=== PATIENT | male | born 1975 | race Caucasian/White ===

== ENCOUNTER 2020-06-28 13:43 | Outpatient (CLI) | payer OTHER, SELFPAY ==
--- NOTE | 2020-07-04 09:55 | P.PCNPFT_ITS ---
PFT Interpretation PFT Interpretation: This Spirometry met all criteria for ATS standards and reproducibility FEV/FVC post bronchodilator 78% FEV1 109% FVC 106% Flow volume loops showed normal expiratory limb but inspiratory limb showed some flattening. Impression: Normal PFT. The flowvolume loop suggests possible intrathoracic shannan tral airway obstruction in the right clinical context. It could also be that the inspiratory limb part of the flow volume loop was not focused on during the procedure. Clinical correlation is advised.
== END 2020-06-28 13:44 | disposition home or self-care (01) ==
LOC: ANHPFT 13:46
PROVIDERS: PCP Family Medicine Adolescent Medicine; Visit Provider Family Medicine Adolescent Medicine
DX: R06.02 Shortness of breath (principal)
CPT/HCPCS: 94060

== ENCOUNTER 2020-10-29 10:41 | Outpatient (CLI) | payer OTHER, SELFPAY ==
--- NOTE | ~2020-10-29 | XR_ITS ---
EXAMINATION: XR chest 2V EXAM DATE: 10/29/2020 11:04 INDICATION: Dyspnea since December. TECHNIQUE: Frontal and lateral projections of the chest obtained and reviewed. There is no prior meron dy for comparison. FINDINGS: The lungs are clear. There are no pleural effusions. The cardiomediastinal silhouette is within normal limits. There is no pneumothorax suspected. The bones and soft tissues are unremarkab le. IMPRESSION: Unremarkable chest x-ray exam. Reviewed, dictated and finalized at location A. OS ARCHITECT
== END 2020-10-29 10:42 | disposition home or self-care (01) ==
PROVIDERS: PCP Family Medicine Adolescent Medicine; Visit Provider Family Medicine Adolescent Medicine
DX: R06.09 Other forms of dyspnea (principal)
CPT/HCPCS: 71046

== ENCOUNTER → 2021-10-01 02:30 | Outpatient (CLI) | payer OTHER, SELFPAY ==
[2021-10-02 03:59] LABS: SARS-CoV-2 RNA PCR Negative
== END ==
PROVIDERS: PCP Family Medicine Adolescent Medicine; Visit Provider Family Medicine Adolescent Medicine
DX: R53.83 Other fatigue (principal); Z20.822 Contact with and (suspected) exposure to COVID-19
CPT/HCPCS: C9803; U0003; U0005

== ENCOUNTER → 2021-10-08 14:35 | Outpatient (CLI) | payer OTHER, SELFPAY ==
--- NOTE | ~2021-10-08 | XR_ITS ---
XR chest 2V DATE: 10/08/2021 14:42 INDICATION: Dyspnea TECHNIQUE: 2 views COMPARISON: 10/29/2020 PA and lateral chest FINDINGS: Normal heart size. No hilar or mediastinal enlargement. No pulmonary infiltrate or consolid ation, pleural effusion or pulmonary vascular congestion or pneumothorax. IMPRESSION: Negative Reviewed, dictated and finalized at location A. K WETTER IMPRESSION: Negative
== END ==
PROVIDERS: Visit Provider Internal Medicine Cardiovascular Disease
DX: R06.00 Dyspnea, unspecified (principal)
CPT/HCPCS: 71046

== ENCOUNTER 2024-03-29 06:48 | Day surgery (SDC) | payer OTHER, SELFPAY ==
[2024-03-04 08:18] VITALS: BMI 26.2
[2024-03-18 10:05] VITALS: BMI 26.7
--- NOTE | 2024-03-28 07:28 | P.PNAN_ITS ---
Anes - Initial Pre Proc Eval Procedure: Operation Date: 03/29/24 09:00 Proposed Procedures p Screening Colonoscopy - Carlos Manuel Cristina MD Date/Time: 03/28/24 07:28 Surgeon: Carlos Manuel Cristina MD Pre Op Diagnosis: Neoplasm Screening Patient Data Age: 48 Gender: M Height: 1.73 m Weight: 79.8 kg Allergies Allergy/AdvReac Type Severity Reaction Status Date / Time No Known Allergies Allergy Verified 03/29/24 07:43 Home Medications Medication Instructions Recorded Confirmed Type albuterol sulfate 90 mcg/actuation 1 inh inhalation Q4H PRN shortness 03/01/24 03/29/24 Rx aerosol inhaler of breath or wheezing #6.7 grams citalopram 40 mg tablet 40 mg PO DAILY 03/18/24 03/29/24 History Patient hx anesthesia problems: none Family hx anesthesia problems: none Results Review: All pre-operative results and documents have been reviewed as part of the pre- operative evaluation. [facility] Past Medical History Medical History Generalized anxiety disorder Pure hypercholesterolemia, unspecified Family History Family History Father Malignant neoplasm of prostate Social History Social History Social History: quit smoking 2004 Smoking status: Former smoker Tobacco type: cigarettes Alcohol intake: current Drinks per week: 21 Substance use: never Substance use type: does not use Living arrangements: with family Occupation/Education: occupation Gender identity (if verbalized by the patient): Male Spiritual care concerns: No Anes - Eval Final PreProcedure Day of Procedure 03/28/24 07:28 Patient weight: overweight Heart: regular rate and rhythm Lungs: clear to auscultation Airway: Mallampati scale class II Neurological: alert and oriented Last oral intake: >/= 8 hours ASA classification: III Emergent: no Anesthetic plan: proceed Anesthesia type and monitoring: general GIVS and standard monitoring Results Review: All pre-operative results and documents have been reviewed as part of the pre- operative evaluation. Informed Consent: The patient's anesthetic plan and its attendant risks and benefits were discussed with the patient/family/POA. Questions were solicited and answers provided to the satisfaction of the patient/family/POA.
[2024-03-29 07:44] VITALS: BP 107/91; PULSE 75; RESP 18; TEMP 36.9; O2SAT 99
[2024-03-29] MEDS: LACTATED RINGERS 1,000 ML 150 ML IV CONT (07:46)
--- NOTE | 2024-03-29 08:01 | PM.HPGS ---
History of Present Illness History of Present Illness Consent: Risks, benefits, and alternatives have been discussed and questions answered. Patient agrees to proceed with procedure. Chief complaint: Neoplasm Screening Narrative: Lev Gates is a 48 year old male who is referred for colon cancer screening. Review of Systems Review of Systems: All systems reviewed & are unremarkable except as noted in HPI and below PMFSH Past Medical History Medical History Generalized anxiety disorder Pure hypercholesterolemia, unspecified Family History Family History Father Malignant neoplasm of prostate Social History Social History Social History: quit smoking 2004 Smoking status: Former smoker Tobacco type: cigarettes Alcohol intake: current Drinks per week: 21 Substance use: never Substance use type: does not use Living arrangements: with family Occupation/Education: occupation Gender identity (if verbalized by the patient): Male Spiritual care concerns: No Meds Home Medications and Allergies Home Medications Medication Instructions Recorded Confirmed Type albuterol sulfate 90 mcg/actuation 1 inh inhalation Q4H PRN shortness 03/01/24 03/29/24 Rx aerosol inhaler of breath or wheezing #6.7 grams citalopram 40 mg tablet 40 mg PO DAILY 03/18/24 03/29/24 History Allergies Allergy/AdvReac Type Severity Reaction Status Date / Time No Known Allergies Allergy Verified 03/29/24 07:43 Vital Signs Vital Signs - 24 hr 03/29/24 07:44 Temperature 36.9 C Pulse Rate 75 Respiratory Rate 18 Blood Pressure 107/91 H Pulse Oximetry 99 Oxygen Delivery Room Air Exam Resp: Auscultation: clear to auscultation bilaterally Cardio: Rate: regular rate Rhythm: regular rhythm GI: GI Palp: Yes Soft to palpation and No Tenderness to palpation present (GI) Assessment and Plan Assessment and plan (1) Colon cancer screening: Code(s): Z12.11 - Encounter for screening for malignant neoplasm of colon Status: Acute Assessment and Plan: Colonoscopy with possible biopsy or polypectomy or cautery or injection of substances.
[2024-03-29 09:00] VITALS: BP 101/74; PULSE 74; RESP 16; O2SAT 99
[2024-03-29 09:10] VITALS: BP 93/74; PULSE 72; RESP 16; O2SAT 100
[2024-03-29 09:20] VITALS: BP 113/82; PULSE 58; RESP 16; O2SAT 100
--- NOTE | 2024-03-29 10:36 | WPDANESPN ---
Anes - Prog Note Post-Op Date/Time: 03/29/24 10:36 Cardiovascular status: normal Respiratory status: normal Airway patency: baseline Mental status: baseline Post-Op hydration status: normal Vital Signs: Last Vital Signs Temp 36.9 C 03/29/24 07:44 Pulse 58 L 03/29/24 09:20 Resp 16 03/29/24 09:20 BP 113/82 03/29/24 09:20 Pulse Ox 100 03/29/24 09:20 O2 Del Method Room Air 03/29/24 09:20 Pain Score (VAS): 0 I/O: Intake & Output 03/28/24 03/29/24 03/29/24 23:59 07:59 15:59 Intake Total 500 Balance 500 Post-procedural complaints: none Patient Feedback: Patient satisfied with anesthetic care. Other Findings: Patient vital signs back to baseline. Patient denies nausea and vomiting. Patient's pain under control. Patient OK for discharge.
== END 2024-03-29 09:36 | disposition home or self-care (01) ==
PROVIDERS: PCP Nurse Practitioner Family; Visit Provider Internal Medicine Gastroenterology
PROC: 0DJD8ZZ Inspection of Lower Intestinal Tract, Via Natural or Artificial Opening Endoscopic (ICD-10-PCS; CPT 45378; principal; 2024-03-29 09:00)
DX: Z12.11 Encounter for screening for malignant neoplasm of colon (principal)
CPT/HCPCS: 45378